=== PATIENT | male | born 1960 | race Caucasian/White ===

== ENCOUNTER → 2018-05-23 10:53 | Outpatient (CLI) | payer OTHER, SELFPAY ==
--- NOTE | 2018-05-23 | DI.RAD.S_ITS ---
PROCEDURE: XR WRIST LT MIN 3V INDICATIONS: LEFT WRIST PAIN/FALL TECHNIQUE: 3 views of the wrist were acquired. COMPARISON: None. FINDINGS: Bones: Branching linear lucency traverses the distal radius with articular surface extension to the radiocarpal joint. Scaphoid view: Not requested Soft tissues: No suspicious soft tissue calcifications. IMPRESSION: Mildly displaced comminuted fracture of the distal radius. Dictated by: Fannie Navarro M.D. on 05/23/2018 at 12:11 Approved by: Fannie Navarro M.D. on 05/23/2018 at 12:12
== END ==
PROVIDERS: Visit Provider Family Medicine
DX: S52.502A Unspecified fracture of the lower end of left radius, initial encounter for closed fracture (principal); M25.532 Pain in left wrist; W19.XXXA Unspecified fall, initial encounter
CPT/HCPCS: 73110

== ENCOUNTER → 2018-06-20 15:48 | Outpatient (CLI) | payer OTHER, SELFPAY | PROVIDERS: Family Provider Family Medicine; PCP Family Medicine; Visit Provider Family Medicine | DX: H91.91 Unspecified hearing loss, right ear (principal); Z53.9 Procedure and treatment not carried out, unspecified reason ==

== ENCOUNTER → 2020-01-27 16:56 | Outpatient (CLI) | payer OTHER, SELFPAY ==
[2020-01-27 17:56] LABS: Add Manual Diff / Slide Review NO; Basophils Absolute Auto 100 /uL (0-100); Basophils Percent Auto 0.8 % (0-2); Eosinophils Absolute Auto 200 /uL (0-450); Eosinophils Percent Auto 2.9 % (2-4); Hematocrit 38.5 % (41-53); Hemoglobin 13.3 g/dL (13.5-17.5); Lymphocytes Absolute Auto 2400 /uL (1100-4500); Lymphocytes Percent Auto 33.2 % (25-40); Mean Corpuscular HGB Conc 34.5 % (30-36); Mean Corpuscular Hemoglobin 31.7 PG (26-34); Mean Corpuscular Volume 91.8 fL (80-100); Monocytes Absolute Auto 700 /uL (0-900); Monocytes Percent Auto 8.9 % (3-14); Neutrophils Absolute Auto 4000 /uL (1500-7000); Neutrophils Percent Auto 54.2 % (50-75); Platelet Count 226 X10^3/uL (150-400); Red Blood Cell Count 4.19 X10^6/uL (4.5-5.9); Red Cell Distribution Width 13.1 % (11.6-14.8); White Blood Cell Count 7.3 X10^3/uL (4.5-11.0)
[2020-01-27 18:17] LABS: Alanine Aminotransferase 32 IU/L (<50); Albumin 4.2 g/dL (3.5-5.0); Albumin Globulin Ratio 1.3 (1.0-2.8); Alkaline Phosphatase 57 U/L (38-126); Aspartate Aminotransferase 36 IU/L (17-59); BUN Creatinine Ratio 14.4 (6-22); Bilirubin Total 0.7 mg/dL (0.2-1.3); Blood Urea Nitrogen 16 mg/dL (9-20); Calcium 9.3 mg/dL (8.4-10.2); Carbon Dioxide 28 mmol/L (22-32); Chloride 105 mmol/L (98-107); Cholesterol 212 mg/dL (140-199); Estimated Glomerular Filt Rate > 60.0 mL/min (>60); Globulin 3.2 g/dL (1.7-4.1); Glucose 91 mg/dL (70-100); HDL Cholesterol 47 mg/dL (40-60); HEMOLYSIS < 15 (0-50); LDL Cholesterol Calculated 139 mg/dL (<100); Potassium 4.4 mmol/L (3.4-5.1); Sodium 138 mmol/L (137-145); Total Protein 7.4 g/dL (6.3-8.2); Triglycerides 132 mg/dL (35-150)
[2020-01-27 18:19] LABS: Erythrocyte Sedimentation Rate 15 MM/HR (0-15)
[2020-01-29 14:52] LABS: Prostate Specific Antigen 2.65 ng/mL (0.10-4.00)
== END ==
PROVIDERS: Family Provider Family Medicine; PCP Student in an Organized Health Care Education/Training Program; Referring Provider Student in an Organized Health Care Education/Training Program; Visit Provider Student in an Organized Health Care Education/Training Program
DX: Z00.00 Encounter for general adult medical examination without abnormal findings (principal); Z12.5 Encounter for screening for malignant neoplasm of prostate; R51 Headache
CPT/HCPCS: 36415; 80053; 80061; 84153; 85025; 85651

== ENCOUNTER → 2020-01-28 14:42 | Outpatient (CLI) | payer OTHER, SELFPAY ==
--- NOTE | 2020-01-28 | DI.CT.S_ITS ---
PROCEDURE: CT SINUS SCREEN WO CON INDICATIONS: SINUS INFECTION TECHNIQUE: Noncontrast 3.0 mm axial images acquired from the frontal sinuses to the mid-sella, with coronal and sagittal reformats. For radiation dose reduction, the following was used: automated exposure control, adjustment of mA and/or kV according to patient size. COMPARISON: [facility], CT, CT HEAD/BRAIN WO CON, 01/28/2020, 14:46. [facility], CT, SINUS SCREEN, 08/24/2010, 11:33. FINDINGS: Image quality: Excellent. Maxillary Sinuses: There is moderate mucosal thickening seen involving the maxillary sinuses. The lateral akins of the maxillary sinuses appear thickened. The medial akins of the maxillary sinuses are demineralized. Ethmoid Air Cells: Bony demineralization is seen of the ethmoid air cell septations. Moderate mucosal thickening is seen, particularly anteriorly, right worse than left. Sphenoid Sinuses: No bony remodeling or destruction. Sinuses are clear. Frontal Sinuses: No bony remodeling or destruction. Mild mucosal thickening is seen within the inferomedial frontal sinuses. Ostiomeatal Complexes: Ostiomeatal complexes are patent, yet they are constitutionally narrowed, with an infraorbital air cell seen on the right side. Miscellaneous: Visualized intra-orbital contents are normal. Bilateral josseline bullosa are seen. There is mucosal thickening seen within the left josseline bullosa. Moderate rightward nasal septal deviation is seen. IMPRESSION: Abnormal mucosal thickening is seen within the ethmoid air cells and the maxillary sinuses. Mild mucosal thickening is seen within the frontal sinuses. The paranasal sinus mucosal thickening is overall progressed compared to 2010. Bony changes are seen, which are consistent with chronic sinusitis. Constitutionally narrowed ostiomeatal complexes. Moderate rightward nasal septal deviation. Dictated by: Paul Zavala M.D. on 01/28/2020 at 14:16 Approved by: Paul Zavala M.D. on 01/28/2020 at 14:19
--- NOTE | 2020-01-28 14:51 | DI.CT.S_ITS ---
PROCEDURE: CT HEAD/BRAIN WO CON INDICATIONS: Headache Chronic sinusitis TECHNIQUE: Noncontrast 4.5 mm thick angled axial sections acquired from the foramen magnum to the vertex, with coronal and sagittal reformats. For radiation dose reduction, the following was used: automated exposure control, adjustment of mA and/or kV according to patient size. COMPARISON: [facility], CT, CT SINUS SCREEN WO CON, 01/28/2020, 14:46. FINDINGS: Image quality: Excellent. CSF spaces: Basal cisterns are patent. No extra-axial fluid collections. The ventricles are symmetric in size and shape. Brain: No intracranial bleeds or masses. There is cerebral volume loss for age, with resultant ventricular and sulcal prominence. There are periventricular and deep white matter chronic small vessel ischemic changes. There is intracranial internal carotid artery atherosclerosis. Skull and face: Calvarium and visualized facial bones appear intact, without suspicious lesions. Sinuses: Mild mucosal thickening is seen within the maxillary sinuses, with [id number] mucosal thickening within the ethmoid air cells. Mild wall thickening can be seen involving the maxillary sinuses. No abnormal fluid is seen within the mastoid air cells. IMPRESSION: Unremarkable intracranial study, without an imaging explanation found for the patient's presenting history of headache. Paranasal sinus disease is noted. Dictated by: Paul Zavala M.D. on 01/28/2020 at 14:14 Approved by: Paul Zavala M.D. on 01/28/2020 at 14:15
== END ==
PROVIDERS: Family Provider Family Medicine; PCP Student in an Organized Health Care Education/Training Program; Referring Provider Student in an Organized Health Care Education/Training Program; Visit Provider Student in an Organized Health Care Education/Training Program
DX: J32.8 Other chronic sinusitis (principal); H57.12 Ocular pain, left eye; R51.9 Headache, unspecified; I65.29 Occlusion and stenosis of unspecified carotid artery; J34.2 Deviated nasal septum; J34.3 Hypertrophy of nasal turbinates; R42 Dizziness and giddiness; R11.0 Nausea
CPT/HCPCS: 70450; 70486

== ENCOUNTER → 2022-02-09 14:40 | Outpatient (CLI) | payer OTHER, SELFPAY ==
--- NOTE | 2022-02-09 14:51 | DI.RAD.S_ITS ---
PROCEDURE: XR CHEST 2V INDICATIONS: ACUTE COUGH TECHNIQUE: 2 views of the chest were acquired. COMPARISON: None. FINDINGS: Surgical changes and devices: None. Lungs and pleura: Lungs are clear. No pleural effusions or pneumothorax. Mediastinum: Mediastinal contours are normal. Heart size is normal. Bones and chest wall: No suspicious bony abnormalities. Soft tissues appear unremarkable. IMPRESSION: Normal for age, source of current acute cough symptoms is not seen. Dictated by: Tre oWodson M.D. on 02/09/2022 at 15:09 Approved by: Tre Woodson M.D. on 02/09/2022 at 15:09
== END ==
PROVIDERS: PCP Student in an Organized Health Care Education/Training Program; Referring Provider Registered Nurse; Visit Provider Registered Nurse
DX: R05.1 Acute cough (principal)
CPT/HCPCS: 71046

== ENCOUNTER 2024-01-15 10:34 | Day surgery (SDC) | payer OTHER, SELFPAY ==
[2024-01-14 08:19] VITALS: BMI 27.9
--- NOTE | 2024-01-15 | PATH_ITS ---
[facility] Accession Number: [id number] No. of containers..01 Tissue . 01 Material submitted: . CYST - PILONIDAL CYST . 01 Diagnosis: PILONIDAL CYST, EXCISION: Epidermal invagination with fibrosis and mixed inflammation, compatible with the clinical concern for pilonidal disease; see comment. MRV 01/21/2024 1428 Local . 01 Comment: The findings are compatible with the clinical concern for pilonidal disease. A PAS fungal stain performed on block A3 is negative for fungal hyphae. There are collections of plasma cells within the inflammatory infiltrate, which are favored to be secondary to the chronicity of the lesion. Clinical correlation is suggested. . 01 Electronically signed: . Yusuf Parkinson MD, Dermatopathologist NPI- [id number] . 01 Gross description: . Received in formalin with two patient identifiers and pilonidal cyst, is an unoriented ellipse of skin, 7.6 x 3.2 x 1.4 cm, with no distinct skin lesion identified. The margin is inked blue. Sectioning reveals a pink-madrigal, fibrous cut surface with no distinct cyst or lesion identified. Dramatic Coach sections are submitted in A1-A4. ([id number]) /MRV 01/16/2024 1920 Local . 01 Pathologist provided ICD-10: L05.92 . 01 CPT . 747951, [id number] Specimen Comment: A courtesy copy of this report has been sent to [phone] Performed at: [address] [facility] [id number], [place], [place] [id number] MD Luis Ford MD Phone: [phone]
[2024-01-15 11:13] VITALS: BMI 27.9
[2024-01-15 11:18] VITALS: BP 141/94; PULSE 67; RESP 18; TEMP 36.3; O2SAT 97
[2024-01-15] MEDS: LACTATED RINGERS 1,000 ML 21 ML IV ×2 (11:28→13:03)
--- NOTE | 2024-01-15 11:33 | P.HP_ITS ---
History of Present Illness History of Present Illness Date Patient Seen: 01/15/24 Time Patient Seen: 11:33 Chief complaint: [place] procedure Narrative: 63-year-old man here for [place] procedure for chronic pilonidal cyst. No interval change in health. PFSH Surgical History Hx of knee surgery Hx of appendectomy Social History marital status: household members: spouse lives independently: Yes occupational status: employed Smoking Status: Never smoker alcohol intake: current Meds Home Medications and Allergies Home Medications Medication Instructions Recorded Confirmed Type mupirocin 2 % topical ointment 1 applic topical BID #22 grams 12/05/23 12/05/23 Rx Allergies Allergy/AdvReac Type Severity Reaction Status Date / Time No Known Drug Allergies Allergy Unverified 12/05/23 09:39 Exam Vital Signs (past 8 hours): - 01/15/24 11:18 Temperature 97.3 F L Pulse Rate 67 Respiratory Rate 18 Blood Pressure 141/94 H Pulse Oximetry 97 Oxygen Delivery Method Room Air Oxygen Delivery Method Room Air Narrative Exam Narrative: General adult man alert oriented no acute distress Chest nonlabored respiration Extremities warm well perfused Assessment & Plan Assessment and plan (1) Infected pilonidal cyst: Status: Acute Assessment & Plan narrative: 63-year-old man with chronic pilonidal cyst here for T[place] procedure today overview of the operation discussed. Postoperative care and activity restriction reviewed. Operative risks including hemorrhage, infection, recurrence, chronic wound reviewed. Questions have been answered and provides his consent to proceed. Time-Based Coding :: [TOTAL MINUTES] spent with patient and on the chart (including review of chart, obtaining history, exam, reviewing outside data, placing orders, documenting exam and treatment plan, and counseling patient) on [DATE].
[2024-01-15] MEDS: CEFAZOLIN 2 GM/100 ML PREMIX 100 ML IV (12:12)
--- NOTE | 2024-01-15 12:31 | SUR.OPER ---
Prone on padded OR bed, head in foam head support, gel chest rolls, gel pad under knees, pillow under lower legs, toes free of pressure, arms secured on padded arm boards at <90 degrees abduction. Safety belt at thigh.
[2024-01-15] MEDS: BUPIVACAINE 0.25% (PF) VIAL 30 ML INJ (12:37)
[2024-01-15] MEDS: BUPIVACAINE LIPOSOME 266 MG/20 ML VIAL INJ (12:39)
[2024-01-15 13:14] VITALS: BP 100/60; PULSE 69; RESP 10; TEMP 36.3; O2SAT 97
--- NOTE | 2024-01-15 13:16 | P.OP_ITS ---
Operative Date/Time/Diagnoses Date of procedure: 01/15/24 Time of procedure: 13:16 Pre-op diagnosis: Pilonidal cyst Post-op diagnosis: same Procedure & Clinicians Procedure: [place] procedure/cleft lift procedure Same procedure as scheduled: Yes Indications: 63-year-old man with a chronic symptomatic pilonidal cyst Surgeon: Yannick Soto Tobacco Cloth Reclaimer: Dom Johnson Anesthesia Type: General Operative Notes Findings: Chronic pilonidal cyst Estimated Blood Loss (mL): 20 Procedure in detail: Patient was brought to the operating room. General anesthesia was induced he was intubated with an endotracheal tube. He was then placed into the prone position and appropriately padded. He was then prepped and draped in sterile fashion time-out was performed. He received 2 g of Ancef prior to of the operation. We outlined the area just outside of the cleft where the buttocks would naturally touch one another. We marked a skin island within this in order to encompass all of the pilonidal cyst disease. 30 mL of 0.25% Marcaine mixed with 20 ml of Exparel were used to infiltrate the skin. The medial aspect of the skin island was incised down to the level of the subcutaneous tissue. We raised a skin flap on the adjacent side. The tape was released and we could see how far the flap would advance beyond the midline to the opposite side. With this the island of skin/active disease was excised and passed off the field as specimen. A 2nd skin flap was raised on the opposite side in similar fashion. Hemostasis was achieved. The wound was then closed in 3 layers using interrupted PDS suture. A 15 Armenian drain was placed deep within the wound cavity secured using nylon. Skin was closed using Monocryl followed by the application of Dermabond. He was placed supine and extubated. He tolerated the procedure well was transferred to recovery in stable condition. The sponge and instrument count was correct x2. Complications: none Post-operative Condition: stable Disposition: same day surgery
[2024-01-15 13:22] VITALS: BP 110/68; PULSE 64; RESP 9; O2SAT 97
[2024-01-15 13:25] VITALS: BP 123/74; PULSE 63; RESP 8; O2SAT 97
[2024-01-15 13:29] VITALS: BP 125/78; PULSE 70; RESP 13; O2SAT 99
[2024-01-15 13:39] VITALS: BP 137/83; PULSE 66; RESP 10; TEMP 36.1; O2SAT 99
== END 2024-01-15 13:45 | disposition home or self-care (01) ==
PROVIDERS: PCP Registered Nurse; Referring Provider Surgery; Visit Provider Surgery
PROC: (CPT 11772; principal; 2024-01-15 12:45)
DX: L05.91 Pilonidal cyst without abscess (principal)
CPT/HCPCS: 11772; 82962; C9290; J0330; J0690; J1100; J1885; J2405; J3010

== ENCOUNTER → 2025-01-19 19:06 | Outpatient (CLI) | payer BC, SELFPAY ==
--- NOTE | 2025-01-19 19:08 | DI.MRI.S_ITS ---
PROCEDURE: MR KNEE LT WO CON INDICATIONS: r/o meniscus tear - left TECHNIQUE: Noncontrast sagittal PD fast spin echo and T2 fast spin echo with fat saturation, sagittal 3-D FLASH with fat saturation; coronal T1 spin echo and PD fast spin echo with fat saturation, and axial PD fast spin echo with fat saturation through the knee. COMPARISON: None. FINDINGS: Image quality: Excellent. Menisci: There is some anterior horn of the medial meniscus with absence of the midbody and posterior horn. The lateral meniscus demonstrates posterior horn with absence of the anterior horn and midbody. Cruciate ligaments: Postoperative changes are noted with ACL graft which appears intact with normal size and signal. Posterior cruciate ligament is intact Medial structures: Subcutaneous edema medially and adjacent to the medial collateral ligament may be related to grade 1 injury. Mild increased medial bursal fluid. Increased T2 weighted signal/thickening and tendinopathy of the distal semimembranosus tendon. Tendinopathy versus partial tear of the proximal medial head of the gastrocnemius tendon with heterogeneous signal and thickening. Moderate adjacent edema and trace fluid. Visualized portions of the pes anserinus tendons appear normal. Lateral structures: Diffuse thickening and increased T2 weighted signal of the distal iliotibial band. Subcutaneous edema and increased lateral bursal fluid. Mild edema in the popliteus muscle and mild tendinopathy. Lateral collateral ligament is intact. The long and short heads of the biceps femoris tendon appear intact. Anterior structures: Mild lateral subluxation of the patella. Mild tendinopathy distal quadriceps tendon. Patellar ligament is normal. No edema in the infrapatellar fat pad. Bones and cartilage: Severe diffuse cartilaginous thinning in the lateral patellar facet cartilage. Mild to moderate diffuse cartilaginous thinning and mild irregularity in the medial and lateral compartments without focal cartilage defect. Joint space: Moderate knee joint effusion. Popliteal cyst measures up to approximately 5 cm cc by 3 cm transverse by 2 cm AP maximal dimensions. IMPRESSION: Absence of the anterior horn of the medial meniscus and posterior horn of the lateral meniscus. ACL graft within normal limits. Partial tear of the proximal medial head of the gastrocnemius tendon. Moderate knee joint effusion. Degenerative changes with diffuse cartilaginous thinning most notably in the lateral patellar facet and to a lesser degree medial and lateral compartments. Popliteal cyst. Other findings as above. Dictated by: Michel Herrera M.D. on 01/21/2025 at 14:10 Approved by: Michel Herrera M.D. on 01/21/2025 at 14:42
== END ==
LOC: MRI 19:07
PROVIDERS: PCP Registered Nurse; Referring Provider Orthopaedic Surgery; Visit Provider Orthopaedic Surgery
DX: S76.812A Strain of other specified muscles, fascia and tendons at thigh level, left thigh, initial encounter (principal); M25.562 Pain in left knee; M25.462 Effusion, left knee; M71.22 Synovial cyst of popliteal space [Baker], left knee
CPT/HCPCS: 73721